=== PATIENT | female | born 2000 | race Caucasian/White ===

== ENCOUNTER 2021-02-27 20:03 | Emergency (ER) | payer BC, MEDICAID ==
[~2021-02-27] VITALS: Ht 165.1 cm; Wt 59.1 kg
[~2021-02-27 20:03] MED LIST: IBUP-1985 PO
[2021-02-27 20:19] VITALS: BP 125/96
[2021-02-27] MEDS ORDERED: ONDA4TAB12 PO (21:48)
== END 2021-02-27 22:11 | disposition home or self-care (01) ==
LOC: ER 20:04
DX: S06.0X0A Concussion without loss of consciousness, initial encounter (principal); M54.2 Cervicalgia; Z88.8 Allergy status to other drugs, medicaments and biological substances; Z79.899 Other long term (current) drug therapy; Z86.2 Personal history of diseases of the blood and blood-forming organs and certain disorders involving the immune mechanism; W22.8XXA Striking against or struck by other objects, initial encounter; Y93.89 Activity, other specified; Y92.89 Other specified places as the place of occurrence of the external cause; Y99.8 Other external cause status
CPT/HCPCS: 99283